=== PATIENT | male | born 1945 | race Caucasian/White ===

== ENCOUNTER 2018-04-22 01:34 | Emergency (ER) | payer MEDICARE ==
[2018-04-22] MEDS ORDERED: Sodium Chloride 0.9% 10 ML Syringe FLUSH PRN (01:54)
--- NOTE | 2018-04-22 02:13 | EDM.PDOC ---
ED HPI GENERAL MEDICAL PROBLEM - General Chief Complaint: Chest Pain Stated Complaint: CHEST PAIN Time Seen by Provider: 04/22/18 01:53 Source of Information: Reports: Patient History Limitations: Reports: No Limitations - History of Present Illness INITIAL COMMENTS - FREE TEXT/NARRATIVE: This 72 year old white male comes in with history of chest pain. He's been getting this 1-2 times daily for months. Typically related to exertion but tonight he was awakened with pain. He had some in the afternoon today and it went away with 3 325 mg ASA; the pain always goes away with aspirin. He describes it as a substernal aching and burning that goes down arms. He said the pain will subside "if I take it easy and go slow." Never tried any antacid use. Just drinking water has no effect. Pain is completely gone now. Lasted about 1 hour tonight. History of paroxysmal A-fib. 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 Anterior Chest Pain Score (Numeric/FACES): 4 - Related Data Allergies Allergy/AdvReac Type Severity Reaction Status Date / Time No Known Allergies Allergy Verified 04/22/18 01:39 Home Meds: Home Meds NK [No Known Home Meds] 10/07/14 [History] Past Medical History Cardiovascular History: Reports: Afib, High Cholesterol Other Cardiovascular History: Electric cardioversion x 2 for Afib Gastrointestinal History: Reports: Colon Polyp Genitourinary History: Reports: Prostate Disorder Musculoskeletal History: Reports: Fracture Other Musculoskeletal History: r hand fx collar bone x2 - Infectious Disease History Infectious Disease History: Reports: Chicken Pox, Measles, Mumps - Past Surgical History HEENT Surgical History: Reports: Oral Surgery GI Surgical History: Reports: Appendectomy, Colonoscopy, Hernia, Inguinal, Polypectomy Social & Family History - Family History Family Medical History: Noncontributory - Tobacco Use Smoking Status *Q: Never Smoker Second Hand Smoke Exposure: No - Caffeine Use Caffeine Use: Reports: Energy Drinks - Alcohol Use Days Per Week of Alcohol Use: 0 - Recreational Drug Use Recreational Drug Use: No ED ROS GENERAL - Review of Systems Review Of Systems: See Below Constitutional: Reports: No Symptoms HEENT: Reports: No Symptoms Respiratory: Reports: No Symptoms Cardiovascular: Reports: Chest Pain Endocrine: Reports: No Symptoms GI/Abdominal: Reports: No Symptoms : Reports: No Symptoms Musculoskeletal: Reports: No Symptoms Skin: Reports: No Symptoms Neurological: Reports: No Symptoms Psychiatric: Reports: No Symptoms ED EXAM, GENERAL - Physical Exam Exam: See Below Exam Limited By: No Limitations General Appearance: Alert, WD/WN, No Apparent Distress (athletic appearing, fit and trim) Eye Exam: Bilateral Eye: Normal Inspection Nose: Normal Inspection Throat/Mouth: Normal Inspection Head: Atraumatic Neck: Normal Inspection Respiratory/Chest: Lungs Clear Cardiovascular: Normal Peripheral Pulses, Regular Rate, Rhythm, No Murmur GI/Abdominal: Soft, Non-Tender Extremities: Normal Inspection, No Pedal Edema Neurological: Alert, Oriented, CN II-XII Intact, Normal Cognition, No Motor/ Sensory Deficits Psychiatric: Normal Affect Skin Exam: Warm, Dry Course - Vital Signs Last Recorded V/S: Last Vital Signs Temp 36.5 C 04/22/18 01:46 Pulse 73 04/22/18 01:46 Resp 16 04/22/18 01:46 BP 137/91 H 04/22/18 01:46 Pulse Ox 96 04/22/18 01:46 - Orders/Labs/Meds Orders: Active Orders 24 hr Category Date Time Status EKG Documentation Completion [RC] ASDIRECTED Care 04/22/18 01:54 Active Chest 1V Frontal [CR] Urgent Exams 04/22/18 01:54 Ordered COMPREHENSIVE METABOLIC PN,CMP [CHEM] Urgent Lab 04/22/18 01:45 Received TROPONIN I [CHEM] Urgent Lab 04/22/18 01:45 Received Sodium Chloride 0.9% [Saline Flush] Med 04/22/18 01:54 Active 10 ml FLUSH ASDIRECTED PRN Saline Lock Insert [OM.PC] Urgent Oth 04/22/18 01:54 Ordered EKG 12 Lead [EK] Urgent Ther 04/22/18 01:54 Ordered Medication Orders Sodium Chloride (Saline Flush) 10 ml FLUSH ASDIRECTED PRN PRN Reason: Keep Vein Open Last Admin: 04/22/18 01:57 Dose: 10 ml Labs: Laboratory Tests 04/22/18 Range/Units 01:45 WBC 6.4 (4.5-11.0) K/uL RBC 5.56 (4.30-5.90) M/uL Hgb 15.7 H (12.0-15.0) g/dL Hct 46.7 (40.0-54.0) % MCV 84 (80-98) fL MCH 28 (27-31) pg MCHC 34 (32-36) % Plt Count 273 (150-400) K/uL Neut % (Auto) 45 (36-66) % Lymph % (Auto) 37 (24-44) % Levy % (Auto) 13 H (2-6) % Eos % (Auto) 4 (2-4) % Baso % (Auto) 1 (0-1) % Meds: Medications Generic Name Dose Route Start Last Admin Trade Name Freq PRN Reason Stop Dose Admin Sodium Chloride 10 ml 04/22/18 01:54 04/22/18 01:57 Saline Flush FLUSH 10 ml ASDIRECTED PRN Administration Keep Vein Open - Re-Assessments/Exams Free Text/Narrative Re-Assessment/Exam: 04/22/18 02:15 EKG shows LBBB which is new since last EKG of 10/24/15. 04/22/18 02:50 This patient took 975mg ASA in afternoon and same amount at 0100 tonight. Won't heparinize him prior to transfer because of this. Patient insists on going by POV. He's aware of risks and understands that he's probably had an FL. Discussed with Dr Boone and Dr Mobley at [facility] Departure - Departure Time of Disposition: 02:53 Disposition: DC/Tfer to Acute Hospital 02 Reason for Transfer *Q: Primary PCI Indicated Condition: Serious Clinical Impression: Acute coronary syndrome Referrals: PCP,None [Primary Care Provider] - Additional Instructions: Patient and signed refusal to be transferred by ambulance. Advised to drive carefully. - My Orders Last 24 Hours: My Active Orders 04/22/18 01:45 COMPREHENSIVE METABOLIC PN,CMP [CHEM] Urgent TROPONIN I [CHEM] Urgent 04/22/18 01:54 EKG Documentation Completion [RC] ASDIRECTED Chest 1V Frontal [CR] Urgent Sodium Chloride 0.9% [Saline Flush] 10 ml FLUSH ASDIRECTED PRN Saline Lock Insert [OM.PC] Urgent EKG 12 Lead [EK] Urgent - Assessment/Plan Last 24 Hours: My Active Orders 04/22/18 01:45 COMPREHENSIVE METABOLIC PN,CMP [CHEM] Urgent TROPONIN I [CHEM] Urgent 04/22/18 01:54 EKG Documentation Completion [RC] ASDIRECTED Chest 1V Frontal [CR] Urgent Sodium Chloride 0.9% [Saline Flush] 10 ml FLUSH ASDIRECTED PRN Saline Lock Insert [OM.PC] Urgent EKG 12 Lead [EK] Urgent
[2018-04-22 02:36] VITALS: BP 158/82
--- NOTE | 2018-04-23 12:46 | CR ---
CHEST: Portable CLINICAL HISTORY:Pain COMPARISON:2014 FINDINGS: The heart size, pulmonary vascular and hilar structures are normal. No infiltrate effusion or pneumothorax is seen. There are atherosclerotic changes in the aorta. IMPRESSION: No acute cardiopulmonary process.
== END 2018-04-22 03:02 ==
LOC: JP.ED 01:34
DX: I24.9 Acute ischemic heart disease, unspecified (principal); E78.00 Pure hypercholesterolemia, unspecified; I48.91 Unspecified atrial fibrillation
CPT/HCPCS: 36415; 71045; 80053; 84484; 85025; 93005; 93010; 99285; J7050